=== PATIENT | male | born 1985 | race Hispanic/Latino ===

== ENCOUNTER 2017-06-23 11:05 | Emergency (ER) | payer OTHER | END 2017-06-23 11:36 | disposition home or self-care (01) | LOC: EDH 11:05 | DX: M54.16 Radiculopathy, lumbar region (principal) ==

== ENCOUNTER 2017-11-22 14:55 | Emergency (ER) | payer SELFPAY ==
[2017-11-22] MEDS ORDERED: KETOROLAC TROMETHAMINE 60 MG/2 ML VIAL ONE (15:33)
[2017-11-22] MEDS ORDERED: LIDOCAINE 5% TOPICAL PATCH TP ONE (15:34)
[2017-11-22] MEDS ORDERED: DIAZEPAM 5 MG TABLET ONE (15:35)
== END 2017-11-22 17:33 | disposition home or self-care (01) ==
LOC: EDH 14:55
DX: M54.16 Radiculopathy, lumbar region (principal); Z98.890 Other specified postprocedural states
CPT/HCPCS: 96372; 99283; J1885